=== PATIENT | male | born 1960 | race Caucasian/White ===

== ENCOUNTER 2018-04-26 13:31 | Outpatient (CLI) | payer BC ==
--- NOTE | 2018-04-26 14:06 | RAD ---
LEFT TIBIA FIBULA 2 VIEWS: HISTORY: Swelling. Pain. COMPARISON: None. FINDINGS: At the region of concern, there is no fracture, cortical irregularity, or periosteal reaction. No ra diopaque foreign body. IMPRESSION: Unremarkable 2 views of the left tibia and fibula. POS: [facility]
== END 2018-04-26 13:32 | disposition home or self-care (01) ==
LOC: SCSRAD 13:31
PROVIDERS: ATTEND Physician Assistant
DX: M79.662 Pain in left lower leg (principal); M79.89 Other specified soft tissue disorders